=== PATIENT | female | born 1955 | race Two or more races ===

== ENCOUNTER 2018-12-19 04:04 | Inpatient (IN) | payer MEDICAID ==
[~2018-12-19] VITALS: Ht 149.9 cm; Wt 80.0 kg
[2018-12-19 06:40] LABS: Basophils # (auto) 0 uL; Basophils % (auto) 0.5 % (0.0-2.0); Eosinophils # (auto) 0 uL; Eosinophils % (auto) 0.6 % (0.0-7.0); Hematocrit 38.8 % (36.0-46.0); Hemoglobin 13.1 g/dL (12.2-16.2); Lymphocytes # (auto) 1.9 uL; Lymphocytes % (auto) 22.7 % (10.0-50.0); Mean Corpuscular Hemoglobin 29.5 pg (28.0-32.0); Mean Corpuscular Hgb Conc. 33.7 g/dL (32.0-36.0); Mean Corpuscular Volume 87.5 fL (80.0-100.0); Monocytes # (auto) 0.6 uL; Monocytes % (auto) 7.8 % (0.0-12.0); Neutrophils # (auto) 5.6 uL; Neutrophils % (auto) 68.4 % (37.0-80.0); Nucleated Red Blood Cells % 0.1 %; Platelet Count (auto) 301 10^3/uL (140-450); Red Blood Cells 4.43 10^6/uL (4.0-5.20); Red Cell Distribution Width 13.2 % (11.8-14.3); White Blood Cell 8.2 10^3/uL (4.4-10.8)
[2018-12-19] MEDS ORDERED: ASPirin 81 mg TAB PO ONE (07:30)
[2018-12-19] MEDS ORDERED: traMADol HCL 50 MG TAB PO PRN (09:00)
[2018-12-19] MEDS ORDERED: MORPHINE SULF INJ 2 MG/ML SYRINGE 1ML IV PRN (09:00)
[2018-12-19] MEDS ORDERED: ACETAMINOPHEN 500 MG TAB PO PRN (09:00)
[2018-12-19] MEDS ORDERED: NITROGLYCERIN 0.4 MG SL TAB SL PRN (09:00)
[2018-12-19] MEDS ORDERED: TEMAZEPAM 15 MG CAP PO PRN (09:00)
[2018-12-19] MEDS ORDERED: PROMETHAZINE HCL 25 MG/ML 1ML IV PRN (09:00)
[2018-12-19] MEDS ORDERED: LACTULOSE 20Gm/30ML SOLN PO PRN (09:00)
[2018-12-19] MEDS: SODIUM CHLORIDE 0.9% 1,000 ML IV SCH ×2 (09:10→22:11)
[2018-12-19 09:15] LABS: Alanine Aminotransferase 25 U/L (13-56); Albumin 3.8 g/dL (3.4-5.0); Anion Gap 8 (5-15); Aspartate Aminotransferase 11 U/L (15-37); Blood Urea Nitrogen 17 mg/dL (7-18); Calcium 9.1 mg/dL (8.5-10.1); Carbon Dioxide 27 mmol/L (21-32); Chloride 106 mmol/L (98-107); Glucose 149 mg/dL (74-106); Potassium 4.5 mmol/L (3.5-5.1); Sodium 141 mmol/L (136-145)
[2018-12-19 09:20] LABS: Alkaline Phosphatase 147 U/L (45-117); BUN/Creatinine Ratio 25.4; Bilirubin, Total 0.4 mg/dL (0.2-1.0); GFR African American 115 mL/min; GFR Non-African American 95 mL/min; Total Protein 7.8 g/dL (6.4-8.2)
[2018-12-19 09:41] LABS: CRP High Sensitivity 1.21 mg/dL (< 0.3)
[2018-12-19 09:51] LABS: Alcohol, Urine < 3.0 mg/dL (0-5); Amphetamine Screen, Urine NEGATIVE (NEGATIVE); Barbiturate Scree,Urine NEGATIVE (NEGATIVE); Benzodiazephine Screen, Urine NEGATIVE (NEGATIVE); Cannabinoid Screen, Urine NEGATIVE (NEGATIVE); Cocaine Screen, Urine NEGATIVE (NEGATIVE); Opiate Scree,Urine NEGATIVE (NEGATIVE)
--- NOTE | 2018-12-19 09:51 | NUR ---
no home meds per patient report
[2018-12-19] MEDS: ENALAPRIL MALEATE 10 MG TAB PO SCH (09:56)
[2018-12-19] MEDS: ASPirin 81 mg TAB PO SCH (09:57)
[2018-12-19] MEDS: FAMOTIDINE 20 MG TAB PO SCH ×2 (09:57→21:22)
[2018-12-19] MEDS: METOPROLOL TARTRATE 25 MG TAB PO SCH ×2 (09:58→21:23)
[2018-12-19] MEDS: NITROGLYCERIN 0.2MG/HR TOPICAL PATCH TD SCH (09:59)
[2018-12-19] MEDS: ENOXAPARIN SOD 40 MG/0.4 ML SYRINGE SC SCH (09:59)
[2018-12-19 10:00] LABS: Phencyclidine Screen, Urine NEGATIVE (NEGATIVE)
[2018-12-19 13:00] VITALS: BP 122/69
--- NOTE | 2018-12-19 15:30 | NUR ---
Received patient care report received from Margi reddy. Patient found laying down in bed in no acute distress or sob. Pt denies any CP. Pt on tele #6 and reading is sinus rhythm hr 92. Patient instructed to call for assistance as needed and call light within reach. Patient instructed regarding need to collect urine sample and urine specimen at bedside for collection. Cont care
[2018-12-19 17:00] VITALS: BP 128/65
--- NOTE | 2018-12-19 18:05 | NUR ---
C/O Pain pt states WATT. Will medicate as ordered for pain. Cont care
--- NOTE | 2018-12-19 19:30 | NUR ---
Opening Shift Note Assumed care of patient, awake and alert, afghan speaking but can understand a little Swedish. No S/S of distress/SOB or pain. Discussed on POC and to be NPO after MN, for Left Heart Cath tomorrow. Instructed to call for assist PRN, patient and family verbalized understanding, call light within reach, bed in lowest position, will continue to monitor for changes Q1hr and PRN.
[2018-12-19 20:00] VITALS: BP 124/65
[2018-12-19 21:28] LABS: Urine Bacteria FEW /hpf (None Seen); Urine Blood Negative /uL (Negative); Urine Specific Gravity 1.015 (1.001-1.035); Urine WBC 1 /hpf (0 - 5)
[2018-12-19] MEDS ORDERED: ATORVASTATIN 20 MG TAB PO SCH (22:00)
[2018-12-19 22:25] VITALS: BP 124/65
--- NOTE | 2018-12-20 05:20 | NUR ---
Consent signed by patient, CHG wipes done, maintained on NPO, will endorse to misael BRANCH
[2018-12-20 06:11] LABS: Basophils # (auto) 0 uL; Basophils % (auto) 0.5 % (0.0-2.0); Eosinophils # (auto) 0.1 uL; Eosinophils % (auto) 0.9 % (0.0-7.0); Hematocrit 36.6 % (36.0-46.0); Hemoglobin 12.2 g/dL (12.2-16.2); Lymphocytes # (auto) 2.3 uL; Lymphocytes % (auto) 28.1 % (10.0-50.0); Mean Corpuscular Hgb Conc. 33.2 g/dL (32.0-36.0); Mean Corpuscular Volume 87.2 fL (80.0-100.0); Monocytes # (auto) 0.6 uL; Neutrophils # (auto) 5.3 uL; Neutrophils % (auto) 63.5 % (37.0-80.0); Platelet Count (auto) 286 10^3/uL (140-450); Red Cell Distribution Width 13.3 % (11.8-14.3); White Blood Cell 8.4 10^3/uL (4.4-10.8)
[2018-12-20 06:12] VITALS: BP 107/58
[2018-12-20 06:31] LABS: Calcium 8.5 mg/dL (8.5-10.1)
[2018-12-20 06:32] LABS: INR 0.94 (0.9-1.15); Partial Thromboplastin Time 24.9 sec (23.64-32.05); Prothrombin Time 10.2 sec (9.06-12.60)
[2018-12-20 06:33] LABS: BUN/Creatinine Ratio 19.7
--- NOTE | 2018-12-20 07:42 | NUR ---
Patient taken down to medical laboratory assistant care endorsed to Juliette medical laboratory assistant rn. No distress or sob noted on departure will cont care on arrival.
[2018-12-20] MEDS ORDERED: fentaNYL CITRATE 100 MCG/2 ML VL ONE (08:20)
[2018-12-20] MEDS ORDERED: SODIUM CHL 0.9% 0 ML ONE (08:20)
[2018-12-20] MEDS ORDERED: ANGIOMAX 250 MG VIAL IV ONE (08:20)
[2018-12-20] MEDS ORDERED: MIDAZOLAM HCL 1MG/1ML-2 ML VIAL ONE (08:20)
[2018-12-20] MEDS ORDERED: LIDOCAINE 2%HCL (LOCAL ANESTH.) INJ 20ML MDV ONE (08:27)
[2018-12-20] MEDS ORDERED: IOHEXOL 350 MG/ML 100ML IJ ONE (08:27)
[2018-12-20 09:00] VITALS: BP 111/68
[2018-12-20] MEDS: ENOXAPARIN SOD 40 MG/0.4 ML SYRINGE SC SCH (09:23)
[2018-12-20] MEDS: NITROGLYCERIN 0.2MG/HR TOPICAL PATCH TD SCH (10:00)
--- NOTE | 2018-12-20 10:00 | NUR ---
Report received from manager cardiac cath Report received from Brittney in manager cardiac cath. Awaiting for patient to come back to unit.
--- NOTE | 2018-12-20 10:24 | NUR ---
Patient back from labor and delivery registered nurse dressing to right groin noted c/d/i. No s/s of hematoma noted. Pulses palpable to ble. VSS. No s/s of distress or sob noted. Call light within reach. Cont care
[2018-12-20] MEDS: FAMOTIDINE 20 MG TAB PO SCH (10:38)
[2018-12-20] MEDS: ASPirin 81 mg TAB PO SCH (10:38)
[2018-12-20] MEDS: METOPROLOL TARTRATE 25 MG TAB PO SCH (10:38)
[2018-12-20] MEDS: ENALAPRIL MALEATE 10 MG TAB PO SCH (10:38)
[2018-12-20] MEDS: SODIUM CHLORIDE 0.9% 1,000 ML IV SCH (12:14)
[2018-12-20] MEDS ORDERED: LISI-646 PO (12:19)
[2018-12-20 13:00] VITALS: BP 108/37
[2018-12-20 16:29] VITALS: BP 102/58
--- NOTE | 2018-12-20 17:00 | NUR ---
Dressing to groin drainage noted to right groin dressing. Dressing removed and site assessed. No active bleeding noted, no hematoma noted. 4x4 sterile gauze and Tegaderm applied. Patient instructed to notify primary rn if bleeding occurs, s/s of infections to report. Discharge instructions given as ordered to patient, and after pt's consent, daughter and family at bedside. Encourage to follow up with PMD and firer kiln as instructed. All questions and concerns addressed. Patient and family verbalized understanding. Medication reconciliation form completed and copy given to patient. IV removed with catheter intact, pressure dressing applied. Telemetry unit returned to [facility]. Patient getting dressed at this time, awaiting wheelchair. No distress noted or sob
[2018-12-20 17:08] VITALS: BP 107/63
--- NOTE | 2018-12-20 17:45 | NUR ---
Patient taken to vehicle via wheelchair with all personal belongings, accompanied by staff and family members. No distress noted at time of departure, sob or pain.
== END 2018-12-20 17:45 | disposition home or self-care (01) | DRG 192 ==
LOC: ER 04:08 → TELE-EAST 08:54
PROVIDERS: ADMIT Internal Medicine; ATTEND Internal Medicine
PROC: 4A023N7 Measurement of Cardiac Sampling and Pressure, Left Heart, Percutaneous Approach (ICD-10-PCS; principal; 2018-12-20)
PROC: B2111ZZ Fluoroscopy of Multiple Coronary Arteries using Low Osmolar Contrast (ICD-10-PCS; 2018-12-20)
PROC: B2151ZZ Fluoroscopy of Left Heart using Low Osmolar Contrast (ICD-10-PCS; 2018-12-20)
DX: R07.89 Other chest pain (principal); I11.9 Hypertensive heart disease without heart failure; E66.9 Obesity, unspecified; I25.10 Atherosclerotic heart disease of native coronary artery without angina pectoris; Z68.35 Body mass index [BMI] 35.0-35.9, adult; E78.5 Hyperlipidemia, unspecified; Z82.49 Family history of ischemic heart disease and other diseases of the circulatory system; Z83.3 Family history of diabetes mellitus; Z98.51 Tubal ligation status
CPT/HCPCS: 36415; 71045; 80048; 80053; 80061; 80307; 81001; 82550; 84484; 85025; 85379; 85610; 85652; 85730; 86141; 86850; 86900; 86901; 93005; 93458; 94761; G0378; J2250

== ENCOUNTER 2021-07-02 12:06 | Emergency (ER) | payer MEDICAID ==
[~2021-07-02] VITALS: Ht 137.2 cm; Wt 54.4 kg
[~2021-07-02 12:06] MED LIST: LISI20TA28 PO
[2021-07-02 13:06] VITALS: BP 138/84
[2021-07-02] MEDS ORDERED: KETOROLAC TROMETH 60MG/2ML VIAL IM ONE (14:00)
[2021-07-02] MEDS ORDERED: IBUP800T27 PO (14:29)
[2021-07-02] MEDS ORDERED: IBUPROFEN 800 MG TAB PO ONE (14:30)
== END 2021-07-02 14:58 | disposition home or self-care (01) ==
LOC: ER 12:06 → EDBD 12:06 → EDSEX 12:06 → ER 14:58
DX: S20.212A Contusion of left front wall of thorax, initial encounter (principal); Z98.51 Tubal ligation status; W18.00XA Striking against unspecified object with subsequent fall, initial encounter; Y93.01 Activity, walking, marching and hiking; Y92.89 Other specified places as the place of occurrence of the external cause; Y99.8 Other external cause status
CPT/HCPCS: 71046; 71101; 93005